=== PATIENT | male | born 1960 | race Two or more races ===

== ENCOUNTER 2024-07-18 21:00 | Inpatient (IN) | payer MEDICAID, SELFPAY ==
[~2024-07-18] VITALS: Ht 177.8 cm; Wt 91.5 kg
[2024-07-18 21:05] VITALS: PULSE 44; RESP 11; O2SAT 98
[2024-07-18] MEDS ORDERED: HEPARIN SODIUM (PORCINE) 5000 UNITS/ML 1ML VIAL ONE (21:05)
[2024-07-18] MEDS: ONDANSETRON HCL 4 MG/2 ML VIAL ONE (21:05)
[2024-07-18] MEDS: MORPHINE SULFATE 4 MG/ML SYR/VIAL ONE (21:25)
--- NOTE | 2024-07-18 21:26 | ED.PDOC ---
HPI Comments 63-year-old male came to ER via EMS for chest pains. Patient has history of DC status post cardiac stents. States about 45 minutes ago, he developed sudden onset left-sided chest pains, pressure, constant, nonradiating, associated with nausea, diaphoresis and shortness a breath. Upon arrival paramedics, EKG showed STEMI, patient was given aspirin 324 mg, and 3 doses of nitroglycerin. Blood pressure on scene was 125/68 mmhg, and bradycardic at 50s. Patient still complaining of chest pain at this time care Chief Complaint: Chest Pain Time Seen by MD: 21:25 Reviewed Notes: Acid Correction Hand Notes Allergies: Coded Allergies: NO KNOWN ALLERGIES (Unverified , 07/18/24) Home Meds Reported Medications Finasteride (Finasteride) 5 Mg Tab, 5 MG PO DAILY for 30 Days, MG 07/19/24 Lisinopril (Lisinopril) 20 Mg Tab, 20 MG PO DAILY for 30 Days, MG 07/19/24 Tamsulosin Hcl (Tamsulosin Hcl) 0.4 Mg Cap, 0.4 MG PO QPM for 30 Days, MG 07/19/24 Information Source: Patient, Emergency Med Personnel Mode of Arrival: EMS Severity: Severe Timing: Minutes Duration: Since onset Prehospital treatment: 12 Lead EKG, ASA, NTG, Oxygen Location: Chest (L) Radiation: No Radiation Quality: Pressure Onset: With Light Exertion Cardiac Risk Factors: Other (DC) PE Risk Factors: None History of: Similar pain in past, DC Associated Signs and Symptoms: SOB, Diaphoresis, N/V Past Medical History PAST MEDICAL HISTORY: CAD, DC Surgical History: PTCA Surgical History (Other): Right nephrectomy Family History Family History: Reviewed,noncontributory to illness Social History Smoker: Non-Smoker Alcohol: Denies ETOH Use Drugs: Denies Drug Use Lives In: Home Constitutional: denies: chills, diaphoresis, fatigue, fever, malaise, sweats, weakness, others EENTM: denies: blurred vision, double vision, ear bleeding, ear discharge, ear drainage, ear pain, ear ringing, eye pain, eye redness, hearing loss, mouth pain, mouth swelling, nasal discharge, nose bleeding, nose congestion, nose pain, photophobia, tearing, throat pain, throat swelling, voice changes, others Respiratory: reports: shortness of breath; denies: cough, hemoptysis, orthopnea, SOB at rest, SOB with excertion, stridor, wheezing, others Cardiovascular: reports: chest pain, dizzy spells, diaphoresis; denies: Dyspnea on exertion, edema, irregular heart beat, left arm pain, lightheadedness, palpitations, PND, syncope, others Gastrointestinal: reports: nausea; denies: abdomen distended, abdominal pain, blood streaked bowels, constipated, diarrhea, dysphagia, difficulty swallowing, hematemesis, melena, poor appetite, poor fluid intake, rectal bleeding, rectal pain, vomiting, others Genitourinary: denies: burning, dysuria, flank pain, frequency, hematuria, incontinence, penile discharge, penile sore, pain, testicle pain, testicle swelling, urgency, others Neurological: denies: dizziness, fainting, headache, left sided numbness, left sided weakness, numbness, paresthesia, pre-existing deficit, right sided numbness, right sided weakness, seizure, speech problems, tingling, tremors, weakness, others Musculoskeletal: denies: back pain, gout, joint pain, joint swelling, muscle pain, muscle stiffness, neck pain, others Integumetry: denies: bruises, change in color, change in hair/nails, dryness, laceration, lesions, lumps, rash, wounds, others Allergic/Immunocompromised: denies: Difficulty Healing, Frequent Infections, Hives, Itching, others Hematologic/Lymphatic: denies: anemia, blood clots, easy bleeding, easy bruising, swollen glands, others Endocrine: denies: excessive hunger, excessive sweating, excessive thirst, excessive urination, flushing, intolerance to cold, intolerance to heat, unexplained weight gain, unexplained weight loss, others Psychiatric: denies: anxiety, bipolar disorder, depression, hopeless, panic disorder, schizophrenia, sleepless, suicidal, others Physical Exam General Appearance: No Apparent Distress, Normal HEENT: Normal ENT Inspection, Pharynx Normal, TMs Normal Neck: Full Range of Motion, Non-Tender, Normal, Normal Inspection Respiratory: Chest Non-Tender, Lungs Clear, No Accessory Muscle Use, No Respiratory Distress, Normal Breath Sounds Cardiovascular: No Edema, No JVD, No Murmur, No Gallop, Normal Peripheral Pulses, Regular Rate/Rhythm Breast Exam: Deferred Gastrointestinal: No Organomegaly, Non Tender, No Pulsatile Mass, Normal Bowel Sounds, Soft Genitalia: Deferred Pelvic: Deferred Rectal: Deferred Extremities: No calf tenderness, Normal capillary refill, Normal inspection, Normal range of motion, Non-tender, No pedal edema Musculoskeletal : Apperance: Normal 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 Was a procedure done?: No CP Differential Dx Differential Diagnosis: Angina, Anxiety / Panic Attack, Electrolyte Disorder, Hyperventilation Differential Diagnosis: CHF Differential Diagnosis: Angina, Chest Wall Pain, Costochondritis, Esophageal reflux/spasm, Gastritis, Myocardial Infarction, Pneumonia X-Ray, Labs, Meds, VS Vital Signs Date Time Temp Pulse Resp B/P (MAP) Pulse Ox O2 Delivery O2 Flow Rate FiO2 07/18/24 22:03 47 07/18/24 21:26 54 07/18/24 21:25 44 11 103/76 07/18/24 21:21 43 07/18/24 21:14 55 07/18/24 21:05 97.8 44 11 103/76 (85) 98 97.8 07/18/24 21:05 44 11 98 Nasal Cannula* 3 32 07/18/24 21:00 54 07/18/24 21:00 97.8 52 18 125/68 (87) 97 97.8 Lab Test 07/18/24 22:01 07/18/24 21:07 Range/Units Troponin I High Sensitivity 51 5 </=54 ng/L White Blood Count 8.1 4.4-10.8 10^3/uL Red Blood Count 5.23 4.5-5.90 10^6/uL Hemoglobin 15.5 13.5-17.5 g/dL Hematocrit 46.0 41.0-53.0 % Mean Corpuscular Volume 87.9 80.0-100.0 fL Mean Corpuscular Hemoglobin 29.6 28.0-32.0 pg Mean Corpuscular Hemoglobin Concent 33.7 32.0-36.0 g/dL Red Cell Distribution Width 14.6 H 11.8-14.3 % Platelet Count 210 140-450 10^3/uL Mean Platelet Volume 8.1 6.9-10.8 fL Neutrophils (%) (Auto) 46.3 37.0-80.0 % Lymphocytes (%) (Auto) 42.9 10.0-50.0 % Monocytes (%) (Auto) 7.7 0.0-12.0 % Eosinophils (%) (Auto) 2.6 0.0-7.0 % Basophils (%) (Auto) 0.5 0.0-2.0 % Neutrophils # (Auto) 3.8 1.6-8.6 10 ^3/uL Lymphocytes # (Auto) 3.5 0.4-5.4 10 ^3/uL Monocytes # (Auto) 0.6 0-1.3 10 ^3/uL Eosinophils # (Auto) 0.2 0-0.8 10 ^3/uL Basophils # (Auto) 0 0-0.2 10 ^3/uL Nucleated Red Blood Cells 0.1 % Prothrombin Time 10.5 9.3-11.8 sec Prothrombin Time INR 0.99 0.9-1.15 Activated Partial Thromboplast Time 22.9 L 24.5-34.5 SEC Sodium Level 139 136-145 mmol/L Potassium Level 3.6 3.5-5.1 mmol/L Chloride Level 107 98-107 mmol/L Carbon Dioxide Level 23 20-31 mmol/L Anion Gap 9 5-15 Blood Urea Nitrogen 23 9-23 mg/dL Creatinine 1.70 H 0.700-1.30 mg/dL Glomerular Filtration Rate Calc 45 >90 mL/min BUN/Creatinine Ratio 13.5 10.0-20.0 Serum Glucose 136 H 74-106 mg/dL Hemoglobin A1c 5.7 <5.7 % A1C Lactic Acid Level 1.5 0.4-2.0 mmol/L Calcium Level 9.5 8.7-10.4 mg/dL Phosphorus Level 3.6 2.4-5.1 mg/dL Magnesium Level 2.0 1.6-2.6 mg/dL B-Type Natriuretic Peptide 31.19 0-100 pg/mL Triglycerides Level 162 H < 150 mg/dL Cholesterol Level 209 H < 200 mg/dL LDL Cholesterol 152 H < 100 mg/dL HDL Cholesterol 35 L 40-59 mg/dL Vitamin B12 Level 268 211-911 pg/mL Vitamin D 25-Hydroxy 33.9 30.0-100 ng/mL Thyroid Stimulating Hormone (TSH) 1.30 0.55-4.78 uIU/mL Time of 1ST Reevaluation: 21:22 Reevaluation 1ST: Unchanged Patient Education/Counseling: Diagnosis, Treatment Family Education/Counseling: No Family Present Departure 1 Departure Time of Disposition: 05:45 (Patient presented with chest pain that was concerning for possible STEMI, ACS, PE, Pneumonia, Muscle Strain, COPD, Dissection. Data: 1. I ordered and reviewed the result of at least 3 labs including a CBC, BMP, and Troponin. 2. I independently interpreted the following tests: EKG which shows sinus arrhythmia however upon repeat EKGs patient appeared to have a STEMI. and Chest X-ray which shows benign chest.Risk:This patient has a high risk of morbidity due to further diagnostic testing or treatment and may suffer from an acute cardiac or respiratory disorder. Workup reveals STEMI and patient should be admitted for further workup and possible expert consultation. ) Impression: Primary Impression: STEMI (ST elevation myocardial infarction) Qualified Codes: I21.02 - ST elevation (STEMI) myocardial infarction involving left anterior descending coronary artery Additional Impression: Acute chest pain Disposition: 09 ADMITTED INPATIENT Admit to: ICU Condition: Critical Critical Care Note Critical Care Time?: Yes (45 min-critical care time only) Critical care comment: STEMI Authorized and Performed by: Ryan Bourgeois MD Total critical care time: Approximately 38 minutes Due to a high probability of clinically significant, life threatening deterioration, the patient required my highest level of preparedness to intervene emergently and I personally spent this critical care time directly and personally managing the patient. This critical care time included obtaining a history; examining the patient; pulse oximetry; ordering and review of studies; arranging urgent treatment with development of a management plan; evaluation of patient's response to treatment; frequent reassessment; and, discussions with other providers. This critical care time was performed to assess and manage the high probability of imminent, life-threatening deterioration that could result in multi-organ failure. It was exclusive of separately billable procedures and treating other patients and teaching time. Please see my other sections and the rest of the note for further information on patient assessment and treatment. Stability Stability form required: No Heart Score Heart Score: Heart Score Response (Comments) Value History Moderate Suspicious [address]-Deviation 2 Age 45-64 1 Risk Factors >3 or Hx ASHD 2 Troponin Normal limit 0 Total 6 I personally scribed for RYAN BOURGEOIS MD ([facility]) on 07/18/24 at 21:26. Electronically submitted by Laci Sierra ([facility]). I personally scribed for RYAN BOURGEOIS MD ([facility]) on 07/18/24 at 21:27. Electronically submitted by Laci Sierra ([facility]). RYAN BOURGEOIS MD Jul 18, 2024 21:26
[2024-07-18] MEDS: HEPARIN SODIUM (PORCINE) 5000 UNITS/ML 1ML VIAL IV ONE (21:32)
[2024-07-18 21:37] LABS: Chloride 107 mmol/L (98-107); Potassium 3.6 mmol/L (3.5-5.1); Sodium 139 mmol/L (136-145)
[2024-07-18 21:38] LABS: Anion Gap 9 (5-15); Calcium 9.5 mg/dL (8.7-10.4); Carbon Dioxide 23 mmol/L (20-31)
[2024-07-18 21:43] LABS: BUN/Creatinine Ratio 13.5 (10.0-20.0); Blood Urea Nitrogen 23 mg/dL (9-23)
[2024-07-18 21:44] LABS: Basophils # (auto) 0 10 ^3/uL (0-0.2); Basophils % (auto) 0.5 % (0.0-2.0); Eosinophils # (auto) 0.2 10 ^3/uL (0-0.8); Eosinophils % (auto) 2.6 % (0.0-7.0); Hemoglobin 15.5 g/dL (13.5-17.5); Lymphocytes # (auto) 3.5 10 ^3/uL (0.4-5.4); Lymphocytes % (auto) 42.9 % (10.0-50.0); Mean Corpuscular Hemoglobin 29.6 pg (28.0-32.0); Mean Corpuscular Hgb Conc. 33.7 g/dL (32.0-36.0); Mean Corpuscular Volume 87.9 fL (80.0-100.0); Monocytes # (auto) 0.6 10 ^3/uL (0-1.3); Monocytes % (auto) 7.7 % (0.0-12.0); Neutrophils # (auto) 3.8 10 ^3/uL (1.6-8.6); Neutrophils % (auto) 46.3 % (37.0-80.0); Nucleated Red Blood Cells % 0.1 %; Platelet Count (auto) 210 10^3/uL (140-450); Red Blood Cells 5.23 10^6/uL (4.5-5.90); Red Cell Distribution Width 14.6 % (11.8-14.3); White Blood Cell 8.1 10^3/uL (4.4-10.8)
[2024-07-18 21:45] LABS: Glucose 136 mg/dL (74-106)
--- NOTE | 2024-07-18 21:54 | DVH ---
CHEST RADIOGRAPH Indication: chest pain Technique: Single frontal view of the chest was obtained COMPARISON: None FINDINGS: Lines and Tubes: None Lungs: Clear Pleura: No effusion. No pneumothorax. Cardiomediastinal contours: Unremarkable Bones: Unremarkable IMPRESSION: No abnormality demonstrated.
[2024-07-18] MEDS: VERAPAMIL 2.5MG/ML INJ 2ML VIAL IV ONE (21:59)
[2024-07-18] MEDS: HEPARIN SODIUM (PORCINE) 5000 UNITS/ML 1ML VIAL ONE (21:59)
[2024-07-18] MEDS: fentaNYL CITRATE 100 MCG/2 ML VL ONE (21:59)
[2024-07-18] MEDS: ANGIOMAX 250 MG VIAL IV ONE (21:59)
[2024-07-18] MEDS: MIDAZOLAM HCL 2MG/2ML 2ml VIAL (1mg/ml) ONE (21:59)
[2024-07-18] MEDS: LIDOCAINE 2%HCL (LOCAL ANESTH.) INJ 20ML MDV ONE (22:00)
[2024-07-18] MEDS: SODIUM CHL 0.9% 50 ML ONE (22:00)
[2024-07-18] MEDS: HEPARIN IN NS 1000Units/500mL 1,500 ML ONE (22:00)
[2024-07-18] MEDS: IODIXANOL 320MG/ML 100ML BTL IV ONE (22:18)
[2024-07-18] MEDS: ATROPINE SULF 1 MG/10ml SYR ONE (22:22)
--- NOTE | 2024-07-18 22:30 | DVHINCON2 ---
DATE OF CONSULTATION: 07/18/2024 CARDIOLOGY CONSULTATION REASON FOR CONSULTATION: Code STEMI. CONSULTING PHYSICIAN: Dr. Dexter Daugherty. REFERRING PHYSICIAN: ER. HISTORY OF PRESENT ILLNESS: This is a 63-year-old gentleman with a history of coronary artery disease status post PCI, history of nephrectomy. He takes aspirin and lisinopril. He is coming in with chest pain. In the field, the EKG was concerning for ST elevation FL. First, the EKG here showed less evidence of ST elevation with nonspecific ST-T wave changes laterally with ST depressions. I did recommend to give the patient morphine and a repeat EKG in a few minutes, which was redone. At this point, the EKG shows subtle ST elevation in V4 through V6 with reciprocal changes inferiorly as well as ST elevation inferiorly. I recommended at this point to call a code STEMI. Heparin was given. The patient's at this point chest pain had improved down to about a 5 or 6/10. He was in sinus bradycardia with a heart rate of 43. He does take aspirin. He does not see a physician, he states, at this point. Per EMS and ER, he has never been to this facility before. PAST MEDICAL HISTORY: As stated above. ALLERGIES: Unknown. SOCIAL HISTORY: No tobacco. He does work at this point. FAMILY HISTORY: Noncontributory. REVIEW OF SYSTEMS: Positive for chest pain and shortness of breath. Positive for nausea and diaphoresis. PHYSICAL EXAMINATION: VITAL SIGNS: Heart rate is 43. Blood pressure is stable, sating 95% on 3 liters. GENERAL: The patient is in mild distress. Head is normocephalic, atraumatic. ENT: Dry mucous membranes. NECK: Supple. CARDIOVASCULAR: S1, S2. Regular rate and rhythm. LUNGS: Scattered rhonchi. ABDOMEN: Soft and nontender. LOWER EXTREMITIES: No significant edema. PSYCH: Oriented and appropriate. LABS: There are none. ASSESSMENT AND PLAN: * Code STEMI. * Acute myocardial infarction. * Hypertension. * History of CAD status post PCI. * History of nephrectomy. PLAN: At this point, I would recommend a cardiac cath and possible intervention. The patient is at the highest possible risk for cardiovascular complications given the acuity of his presentation. He wishes to proceed. Him and his associate who is standing next to him is aware of the current situation. Further recommendations will follow the patient's clinical course. Ninety minutes of critical care time was spent. Thank you for allowing me to participate in the care of this patient. Dexter Daugherty MD CM/CURTIS TID: [id number] RECEIPT: [id number]
[2024-07-18] MEDS ORDERED: DOCUSATE SOD 100 MG CAP PO PRN (22:45)
[2024-07-18] MEDS ORDERED: NITROGLYCERIN 0.4 MG SL TAB SL PRN (22:45)
[2024-07-18] MEDS ORDERED: LORazepam 0.5 MG TAB PO PRN (22:45)
[2024-07-18] MEDS ORDERED: ACETAMINOPHEN 325 MG TAB PO PRN (22:45)
[2024-07-18] MEDS ORDERED: MORPHINE SULFATE INJ 2 MG/ml SYRG IV PRN ×2 (22:45)
[2024-07-18] MEDS: TICAGRELOR 90 MG TAB ONE (22:45)
[2024-07-18] MEDS: EPTIFIBATIDE INJ (2MG/ML) 10ML VIAL IV ONE (22:50)
[2024-07-18] MEDS: SODIUM CHLORIDE 0.9% 500 ML IV SCH (23:00)
[2024-07-18 23:10] VITALS: BP 148/112; PULSE 60; RESP 12; TEMP 98.1; O2SAT 99
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
[2024-07-18 23:25] VITALS: BP 129/75; PULSE 60; RESP 19; O2SAT 95
[2024-07-18 23:40] VITALS: BP 132/78; PULSE 58; RESP 16; O2SAT 96
[2024-07-18 23:42] LABS: Phosphorus 3.6 mg/dL (2.4-5.1)
[2024-07-18 23:45] VITALS: BP 132/78; PULSE 58; RESP 16; O2SAT 96
--- NOTE | 2024-07-18 23:50 | DVHOP ---
DATE OF SURGERY: 07/18/2024 PREOPERATIVE DIAGNOSIS: Acute anterior wall non-ST elevation myocardial infarction. POSTOPERATIVE DIAGNOSIS: Acute anterior wall non-ST elevation myocardial infarction with in-stent thrombosis. PROCEDURES PERFORMED: * Coronary angiogram. * Conscious sedation administration and supervision less than 15 minutes as well as 15-30 minutes as well as 30-45 minutes. * Fluoroscopy use interpretation. * Percutaneous transluminal coronary angioplasty, single vessel. * Percutaneous coronary intervention, single vessel. * Acute myocardial infarction intervention. DESCRIPTION OF PROCEDURE: The patient signed informed consent. Understanding the risks, benefits, and alternatives of procedure, he wished to proceed. He was brought to the lab rep in n.p.o. state. He was prepped in sterile fashion. Sedation was used per cardiac cath protocol. I administered 1 mL of 2% lidocaine to his right wrist. With an antegrade flow wall puncture, I cannulated his right radial artery and placed a 6-Gambian Glidesheath Slender. Next, an intraarterial spasmolytic was administered. Next, I took a 5-Gambian Hernando catheter for coronary angiogram. FINDINGS: * Left main: Moderate vessel off the left sinus Valsalva with mild ostial plaque. No significant stenosis. * Circumflex: Circumflex proximally is patent with about 30% proximal stenosis giving off several OM branches laterally, free of significant disease in the mid circumflex after the moderate-sized OM lateral branch has about a 40% stenosis. Distal circumflex is patent. * Ramus: There is a small ramus coming off the left main as well with mild plaquing. * LAD: The LAD in the ostium is patent. Proximal LAD is about a 30% to 40% stenosis. * Mid LAD: Mid LAD has a previously placed stent with a 99% filling defect and extensive thrombus within it. There is TIFFANY 1 flow down the LAD. The diagonal is a moderate vessel, which appears to be jailed and compromised at this point with significant thrombus. * RCA: RCA is a very large dominant vessel. The ostium and proximal portion are free of significant disease with mild diffuse plaquing. The mid RCA is patent. The distal RCA has a focal 80% stenosis prior to PDA takeoff into the PL branch. INTERVENTION: I switched out to a 6-Gambian XB35 guide. I intubated the left main. Angiomax bolus and drip had been initiated. I brought an 0.14 x 197 BMW wire and I crossed into the apical LAD. I took a 2.5 x 12 mm balloon and performed balloon angioplasty with several inflations into the previously placed stent, which is about 2 years' old with several inflations up to 12 atmospheres. The balloon we did a watermelon seed. I took a 3.0 x 20 mm NC balloon and performed balloon angioplasty in that mid LAD stent as well, now restoring TIFFANY 3 flow, which has significantly improved. At this point, I decided to place a stent. This was a 3.5 x 22 mm [place] drug-eluting stent. This was placed and deployed over the previously placed old stent at high pressure between 16 and 17 atmospheres with two separate inflations, each lasting 15 seconds. Then, I decided to take a 3.5 x 20 mm NC for balloon angioplasty and POBA after the stent was placed up to 18 atmospheres with 1 inflation. Following this, I removed the balloon and angiogram was performed showing 0% residual stenosis in the LAD with excellent TIFFANY 3 flow. There was sluggish flow in the diagonal artery which was already previously jailed and not amenable to any intervention. Satisfied with the result, all guides and wires were removed and a TR band was used to obtain hemostasis. The patient was given 180 mg of p.o. Brilinta as well as one dose of intravenous Integrilin. CONCLUSION: * Successful PTCA and PCI of 99% filling defect and extensive in-stent thrombosis from a previous LAD stent and placement of a new drug-eluting stent. * Moderate LAD ostial and distal disease as noted. * Significant RCA disease. PLAN: * Recommend consideration of PCI to RCA at a later date. The patient has one kidney and significant CKD, this should be staged ideally. * Consider IV hydration as needed, antiplatelet therapy, and admission to ICU. Dexter Daugherty MD CM/DEVORA/CASEY TID: [id number] RECEIPT: [id number]
[2024-07-18 23:52] LABS: INR 0.99 (0.9-1.15); Partial Thromboplastin Time 22.9 SEC (24.5-34.5); Prothrombin Time 10.5 sec (9.3-11.8)
[2024-07-19] VITALS (46 sets, daily range): BP systolic 125–179; BP diastolic 73–116; PULSE 54–82; RESP 9–24; TEMP 98.3–98.7; O2SAT 92–97
[2024-07-19] MEDS: SODIUM CHLORIDE 0.9% 1,000 ML IV ONE (00:08)
[2024-07-19] MEDS ORDERED: TAMS0.4C39 PO (00:30)
[2024-07-19] MEDS ORDERED: LISI20TA56 PO (00:30)
[2024-07-19] MEDS ORDERED: FINA5TAB4 PO (00:30)
[2024-07-19] MEDS: MORPHINE SULFATE INJ 2 MG/ml SYRG IV PRN (00:47)
[2024-07-19] MEDS: TAMSULOSIN HYDROCHLORIDE 0.4 MG CAP PO ONE (01:31)
[2024-07-19] MEDS: PANTOPRAZOLE 40 MG/10 ML VIAL INJ IV ONE ×2 (01:44)
[2024-07-19 04:01] LABS: Basophils # (auto) 0 10 ^3/uL (0-0.2); Basophils % (auto) 0.4 % (0.0-2.0); Eosinophils # (auto) 0 10 ^3/uL (0-0.8); Eosinophils % (auto) 0.1 % (0.0-7.0); Hemoglobin 16.5 g/dL (13.5-17.5); Lymphocytes # (auto) 1.1 10 ^3/uL (0.4-5.4); Lymphocytes % (auto) 11.3 % (10.0-50.0); Mean Corpuscular Hemoglobin 29.8 pg (28.0-32.0); Mean Corpuscular Hgb Conc. 33.6 g/dL (32.0-36.0); Mean Corpuscular Volume 88.6 fL (80.0-100.0); Monocytes # (auto) 0.4 10 ^3/uL (0-1.3); Monocytes % (auto) 4.5 % (0.0-12.0); Neutrophils # (auto) 8.3 10 ^3/uL (1.6-8.6); Neutrophils % (auto) 83.7 % (37.0-80.0); Nucleated Red Blood Cells % 0.2 %; Platelet Count (auto) 176 10^3/uL (140-450); Red Blood Cells 5.53 10^6/uL (4.5-5.90); Red Cell Distribution Width 14.5 % (11.8-14.3); White Blood Cell 9.9 10^3/uL (4.4-10.8)
[2024-07-19 04:17] LABS: INR 1.05 (0.9-1.15); Partial Thromboplastin Time 32.8 SEC (24.5-34.5); Prothrombin Time 11.1 sec (9.3-11.8)
[2024-07-19 04:26] LABS: Alanine Aminotransferase 32 U/L (7-40); Albumin 4.1 g/dL (3.2-4.8); Anion Gap 8 (5-15); BUN/Creatinine Ratio 13.9 (10.0-20.0); Bilirubin, Total 0.6 mg/dL (0.2-1.0); Blood Urea Nitrogen 23 mg/dL (9-23); Calcium 9.9 mg/dL (8.7-10.4); Carbon Dioxide 22 mmol/L (20-31); Chloride 105 mmol/L (98-107); Magnesium 2.2 mg/dL (1.6-2.6); Phosphorus 3.2 mg/dL (2.4-5.1); Total Protein 7.2 g/dL (5.7-8.2)
[2024-07-19 04:35] LABS: Alkaline Phosphatase 45 U/L (46-116); Aspartate Aminotransferase 95 U/L (13-40); Glucose 137 mg/dL (74-106); Potassium 5.2 mmol/L (3.5-5.1); Sodium 135 mmol/L (136-145)
--- NOTE | 2024-07-19 06:53 | ECG ---
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
--- NOTE | 2024-07-19 06:53 | ECG ---
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
--- NOTE | 2024-07-19 08:24 | ECG ---
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
[2024-07-19] MEDS: PANTOPRAZOLE 40 MG/10 ML VIAL INJ IV SCH (08:31)
[2024-07-19] MEDS: ASPirin 81 mg TAB PO SCH (08:32)
[2024-07-19] MEDS: HEPARIN SODIUM (PORCINE) 5000 UNITS/ML 1ML VIAL SC SCH (08:32)
[2024-07-19] MEDS: TICAGRELOR 90 MG TAB PO SCH (08:32)
[2024-07-19] MEDS: NITROGLYCERIN 0.4 MG SL TAB SL PRN (09:12)
[2024-07-19 09:27] LABS: Urine Bacteria None Seen /hpf (None Seen)
[2024-07-19 09:39] LABS: Urine Blood 2+ /uL (Negative); Urine Clarity Clear (Clear); Urine Color Light-Yellow (Yellow); Urine Protein, UAD 2+ (Negative); Urine Specific Gravity 1.034 (1.001-1.035); Urine Squamous Epithelial Cell FEW /hpf (<5); Urine Urobilinogen Normal (Negative); Urine WBC 1 /HPF (0-3)
[2024-07-19 09:52] LABS: Amphetamine Screen, Urine Neg (NEGATIVE); Barbiturate Scree,Urine Neg (NEGATIVE); Benzodiazephine Screen, Urine Pos (NEGATIVE); Cannabinoid Screen, Urine Neg (NEGATIVE); Cocaine Screen, Urine Neg (NEGATIVE); Opiate Scree,Urine Neg (NEGATIVE); Phencyclidine Screen, Urine Neg (NEGATIVE)
[2024-07-19 10:08] LABS: Basophils # (auto) 0 10 ^3/uL (0-0.2); Basophils % (auto) 0.1 % (0.0-2.0); Eosinophils # (auto) 0 10 ^3/uL (0-0.8); Eosinophils % (auto) 0.2 % (0.0-7.0); Hemoglobin 16.8 g/dL (13.5-17.5); Lymphocytes # (auto) 1.3 10 ^3/uL (0.4-5.4); Lymphocytes % (auto) 11.5 % (10.0-50.0); Mean Corpuscular Hemoglobin 29.4 pg (28.0-32.0); Mean Corpuscular Volume 89.3 fL (80.0-100.0); Monocytes # (auto) 0.6 10 ^3/uL (0-1.3); Neutrophils # (auto) 9.7 10 ^3/uL (1.6-8.6); Neutrophils % (auto) 83.2 % (37.0-80.0); Nucleated Red Blood Cells % 0.1 %; Platelet Count (auto) 205 10^3/uL (140-450); Red Blood Cells 5.71 10^6/uL (4.5-5.90); Red Cell Distribution Width 14.4 % (11.8-14.3); White Blood Cell 11.7 10^3/uL (4.4-10.8)
[2024-07-19] MEDS: SODIUM CHLORIDE 0.9% 500 ML IV ONE (10:17)
[2024-07-19 10:25] LABS: Alanine Aminotransferase 36 U/L (7-40); Alkaline Phosphatase 46 U/L (46-116); Anion Gap 10 (5-15); BUN/Creatinine Ratio 14.1 (10.0-20.0); Blood Urea Nitrogen 22 mg/dL (9-23); Calcium 10.1 mg/dL (8.7-10.4); Carbon Dioxide 21 mmol/L (20-31); Chloride 105 mmol/L (98-107); Potassium 4.5 mmol/L (3.5-5.1); Total Protein 7.4 g/dL (5.7-8.2)
[2024-07-19 10:26] LABS: Albumin 4.2 g/dL (3.2-4.8); Aspartate Aminotransferase 160 U/L (13-40); Bilirubin, Total 0.7 mg/dL (0.2-1.0); Glucose 139 mg/dL (74-106); Sodium 136 mmol/L (136-145)
[2024-07-19] MEDS: ONDANSETRON HCL 4 MG/2 ML VIAL IV PRN (10:32)
--- NOTE | 2024-07-19 11:32 | DVH ---
CHEST RADIOGRAPH Indication: STEMI Technique: Single frontal view of the chest was obtained Comparison: XY CHEST PORTABLE on DOS: 07/18/24 FINDINGS: Lines and Tubes: None Lungs: No focal consolidation. Pleura: No effusion. No pneumothorax. Cardiomediastinal contours: Unremarkable Bones: No acute osseous abnormality. IMPRESSION: No acute cardiopulmonary disease.
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
[2024-07-19] MEDS: CARVEDILOL 3.125 MG TAB PO SCH (14:47)
[2024-07-19] MEDS: TAMSULOSIN HYDROCHLORIDE 0.4 MG CAP PO SCH (16:35)
[2024-07-19] MEDS: LISINOPRIL 20 MG TAB PO ONE (16:35)
[2024-07-19] MEDS: ATORVASTATIN 20 MG TAB PO SCH (22:42)
[2024-07-20] VITALS (9 sets, daily range): BP systolic 112–121; BP diastolic 68–79; PULSE 64–80; RESP 18–21; TEMP 97.9–98.5; O2SAT 93–96
[2024-07-20 07:28] LABS: Basophils # (auto) 0 10 ^3/uL (0-0.2); Basophils % (auto) 0.6 % (0.0-2.0); Eosinophils # (auto) 0.1 10 ^3/uL (0-0.8); Eosinophils % (auto) 1.1 % (0.0-7.0); Hematocrit 51.1 % (41.0-53.0); Hemoglobin 16.7 g/dL (13.5-17.5); Lymphocytes # (auto) 1.4 10 ^3/uL (0.4-5.4); Lymphocytes % (auto) 16.1 % (10.0-50.0); Mean Corpuscular Hemoglobin 29.7 pg (28.0-32.0); Mean Corpuscular Hgb Conc. 32.6 g/dL (32.0-36.0); Mean Corpuscular Volume 90.9 fL (80.0-100.0); Monocytes # (auto) 0.7 10 ^3/uL (0-1.3); Monocytes % (auto) 8.1 % (0.0-12.0); Neutrophils # (auto) 6.6 10 ^3/uL (1.6-8.6); Neutrophils % (auto) 74.1 % (37.0-80.0); Platelet Count (auto) 165 10^3/uL (140-450); Red Blood Cells 5.62 10^6/uL (4.5-5.90); Red Cell Distribution Width 14.8 % (11.8-14.3); White Blood Cell 8.8 10^3/uL (4.4-10.8)
[2024-07-20 08:01] LABS: Alanine Aminotransferase 35 U/L (7-40); Albumin 3.9 g/dL (3.2-4.8); Anion Gap 11 (5-15); BUN/Creatinine Ratio 11.5 (10.0-20.0); Blood Urea Nitrogen 18 mg/dL (9-23); Calcium 9.8 mg/dL (8.7-10.4); Chloride 104 mmol/L (98-107); Glucose 103 mg/dL (74-106); Potassium 4.7 mmol/L (3.5-5.1); Total Protein 6.9 g/dL (5.7-8.2)
[2024-07-20 08:02] LABS: Bilirubin, Total 0.8 mg/dL (0.2-1.0)
[2024-07-20 08:04] LABS: Alkaline Phosphatase 43 U/L (46-116); Aspartate Aminotransferase 147 U/L (13-40); Carbon Dioxide 19 mmol/L (20-31); Sodium 134 mmol/L (136-145)
[2024-07-20] MEDS ORDERED: OMEPRAZOLE-SOD BICARB 20 MG POWDER PO SCH (10:00)
[2024-07-20] MEDS: LISINOPRIL 20 MG TAB PO SCH (10:23)
[2024-07-21] VITALS (9 sets, daily range): BP systolic 114–126; BP diastolic 67–78; PULSE 59–67; RESP 18; TEMP 97.4–98.6; O2SAT 95–98
[2024-07-21] MEDS: PANTOPRAZOLE 40 MG TAB PO SCH (09:27)
[2024-07-21] MEDS ORDERED: ASPI-325 PO (10:15)
[2024-07-21] MEDS ORDERED: LISI20TA56 PO (10:15)
[2024-07-21] MEDS ORDERED: CARV-214 PO (10:15)
[2024-07-21] MEDS ORDERED: TICA90TA PO (10:15)
[2024-07-21] MEDS ORDERED: ATOR40TA52 PO (10:15)
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
[2024-07-22 00:57] VITALS: BP 125/70; PULSE 63; RESP 17; TEMP 97.8; O2SAT 98
[2024-07-22 05:00] VITALS: BP 115/72; PULSE 67; RESP 18; TEMP 98.4; O2SAT 100
[2024-07-22 08:00] VITALS: PULSE 63; RESP 17; O2SAT 97
[2024-07-22 08:10] VITALS: PULSE 66
--- NOTE | 2024-07-22 08:12 | ECG ---
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
[2024-07-22 08:58] VITALS: BP 116/83; PULSE 63; RESP 17; TEMP 98.4; O2SAT 97
[2024-07-22 09:22] VITALS: BP 123/70; PULSE 65
--- NOTE | 2024-07-23 08:57 | ECG ---
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
--- NOTE | 2024-07-23 08:57 | ECG ---
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
== END 2024-07-22 10:42 | disposition home or self-care (01) | DRG 321 ==
LOC: EDBD 21:00 → ER 21:13 → OVERFLOW 22:31 → CATH ICU 23:40 → TELE-WESTW 07-20 02:51
PROVIDERS: ADMIT Student in an Organized Health Care Education/Training Program; ATTEND Student in an Organized Health Care Education/Training Program
PROC: 027034Z Dilation of Coronary Artery, One Artery with Drug-eluting Intraluminal Device, Percutaneous Approach (ICD-10-PCS; principal; 2024-07-18)
PROC: B211YZZ Fluoroscopy of Multiple Coronary Arteries using Other Contrast (ICD-10-PCS; 2024-07-18)
DX: I21.09 ST elevation (STEMI) myocardial infarction involving other coronary artery of anterior wall (principal); N17.0 Acute kidney failure with tubular necrosis; T82.855A Stenosis of coronary artery stent, initial encounter; E78.5 Hyperlipidemia, unspecified; N40.0 Benign prostatic hyperplasia without lower urinary tract symptoms; I25.10 Atherosclerotic heart disease of native coronary artery without angina pectoris; E87.5 Hyperkalemia; R73.9 Hyperglycemia, unspecified; I11.9 Hypertensive heart disease without heart failure; Z79.899 Other long term (current) drug therapy; Z90.5 Acquired absence of kidney; Z79.82 Long term (current) use of aspirin
CPT/HCPCS: 36415; 71045; 80048; 80053; 80061; 80307; 81001; 82306; 82607; 83036; 83605; 83735; 83880; 84100; 84443; 84484; 85025; 85610; 85730; 86850; 86900; 86901; 87081; 93005; 93306; 96360; 99152; 99291; C1874; G0378; J2250; J2405; J2470; Q9967